=== PATIENT | female | born 1995 | race Caucasian/White ===

== ENCOUNTER 2018-11-14 20:50 | Emergency (ER) | payer OTHER ==
--- NOTE | 2018-11-14 21:33 | PDOC ---
Rapid Medical Evaluation Time Seen by Provider: 11/14/18 21:28 Medical Evaluation: 11/14/18 21:28 I have performed a brief in-person evaluation of this patient. The patient presents with a chief complaint of: cough and SOB Pertinent physical exam findings: nasal congestion. Lungs CTAB. I have ordered the following: urine, CXR, EKG The patient will proceed to the ED for further evaluation. Discharge Disposition - Diagnosis Pleuritic chest pain - Referrals - Patient Instructions - Post Discharge Activity
[2018-11-14 21:35] VITALS: BP 125/91; PULSE 87; TEMP 98.2; BMI 29.9
--- NOTE | 2018-11-15 01:04 | PDOC ---
History of Present Illness - General Chief Complaint: Pain Stated Complaint: CHEST PAIN Time Seen by Provider: 11/14/18 21:28 History Source: Patient Exam Limitations: No Limitations - History of Present Illness Timing/Duration: reports: week Severity: reports: moderate Possible Cause: Yes: occasional episodes Modifying Factors: improves with: albuterol nebulizer Associated Symptoms: reports: cough, nasal congestion, wheezing Past History - Past Medical History Allergies/Adverse Reactions: Allergies Allergy/AdvReac Type Severity Reaction Status Date / Time No Known Allergies Allergy Verified 11/14/18 21:33 Home Medications: Ambulatory Orders Albuterol 0.083% Nebulizer Ekaterina [Ventolin 0.083% Nebulizer Soln -] 1 neb NEB Q4H PRN #10 vial 11/15/18 Azithromycin [Zithromax -] 250 mg PO UTDICT #6 tab 11/15/18 Methylprednisolone [Medrol Dose Blayne] 4 mg PO ASDIR #21 tablet 11/15/18 COPD: No Other medical history: Pt denies - Suicide/Smoking/Psychosocial Hx Smoking History: Never smoked Have you smoked in the past 12 months: No Information on smoking cessation initiated: No Hx Alcohol Use: No Drug/Substance Use Hx: No Review of Systems - Review of Systems Able to Perform ROS?: Yes Is the patient limited Latvian proficient: No Constitutional: Yes: Fever HEENTM: Yes: Nose Congestion Respiratory: Yes: Cough, Wheezing Cardiac (ROS): No: Symptoms Reported, See HPI, Chest Pain, Edema, Irregular Heart Rate, Lightheadedness, Palpitations, Syncope, Chest Tightness, Other ABD/GI: No: Symptoms Reported, See HPI, Abdominal Distended, Abd. Pain w/ defecation, Blood Streaked Bowels, Constipated, Diarrhea, Difficulty Swallowing , Nausea, Poor Appetite, Poor Fluid Intake, Rectal Bleeding, Vomiting, Indigestion, Abdominal cramping, Tarry Stools, Other : No: Symptoms Reported, See HPI, Burning, Dysuria, Discharge, Frequency, Flank Pain, Hematuria, Incontinence, Pain, Urgency, Testicular Mass, Testicular Swelling, Lesions, Testicular Pain, Other Musculoskeletal: No: Symptoms Reported, See HPI, Back Pain, Gout, Joint Pain, Joint Swelling, Muscle Pain, Muscle Weakness, Neck Pain, Joint Stiffness, Other Integumentary: No: Symptoms Reported, See HPI, Bruising, Change in Color, Change in Hair/Nails, Dryness, Erythema, Flushing, Lesions, Lumps, Pallor, Pruritus, Rash, Sweating, Other Neurological: No: Symptoms reported, See HPI, Headache, Numbness, Paresthesia, Pre-Existing Deficit, Seizure, Tingling, Tremors, Weakness, Unsteady Gait, Ataxia, Dizziness, Other Psychiatric: No: Anxiety, Depression, Frequent Crying, Stressors, Sleep Pattern Change, Emotional Problems, Mood Swings, Change in Appetite, Other *Physical Exam - Vital Signs Last Vital Signs Temp Pulse Resp BP Pulse Ox 98.2 F 87 18 125/91 100 11/14/18 21:33 11/14/18 21:33 11/14/18 21:33 11/14/18 21:33 11/14/18 21:33 - Physical Exam General Appearance: Yes: Nourished, Appropriately Dressed HEENT: positive: EOMI, TAMMIE, Normal Voice Neck: positive: Supple Respiratory/Chest: positive: Wheezing Cardiovascular: positive: Regular Rhythm, Regular Rate Gastrointestinal/Abdominal: positive: Soft Musculoskeletal: positive: Normal Inspection Extremity: positive: Normal Inspection, Normal Range of Motion Integumentary: positive: Normal Color, Warm Neurologic: positive: Fully Oriented, Alert, Motor Strength 5/ ED Treatment Course - ADDITIONAL ORDERS Additional order review: Laboratory Results 11/14/18 21:40 Urine HCG, Qual Negative Medical Decision Making - Medical Decision Making 11/15/18 01:08 cxr napd pt has dry cough for 1 week and some wheezing she uses her nebulizer at home on exam she has a scant wheeze in left lower lobe but she wants to go home now and states she will take her nebulizer then *DC/Admit/Observation/Transfer Diagnosis at time of Disposition: Cough, Asthma exacerbation, mild - Discharge Dispostion Disposition: HOME Condition at time of disposition: Stable - Prescriptions Prescriptions: Albuterol 0.083% Nebulizer Ekaterina [Ventolin 0.083% Nebulizer Soln -] 1 neb NEB Q4H PRN #10 vial PRN Reason: Wheezing Azithromycin [Zithromax -] 250 mg PO UTDICT #6 tab Methylprednisolone [Medrol Dose Blayne] 4 mg PO ASDIR #21 tablet - Referrals - Patient Instructions Printed Discharge Instructions: DI for Cough -- Adult, DI for Asthma -- Adult - Post Discharge Activity
--- NOTE | 2018-11-15 09:35 | EKG ---
Test Reason : Blood Pressure : / mmHG Vent. Rate : 075 BPM Atrial Rate : 075 BPM P-R Int : 120 ms QRS Dur : 084 ms QT Int : 364 ms P-R-T Axes : 069 -15 036 degrees QTc Int : 406 ms NORMAL SINUS RHYTHM NORMAL ECG NO PREVIOUS ECGS AVAILABLE Confirmed by DAIYS COLE, PRASANNA ([id number]) on 11/15/2018 9:35:24 AM Referred By: Confirmed By:PRASANNA VILLA MD
== END 2018-11-15 01:15 | disposition home or self-care (01) ==
LOC: JER 20:50
DX: J45.21 Mild intermittent asthma with (acute) exacerbation (principal)
CPT/HCPCS: 71046-TC-FY; 84703; 93005; 93010; 99281-25